=== PATIENT | female | born 1965 | race Caucasian/White ===

== ENCOUNTER 2021-04-04 08:49 | Day surgery (SDC) | payer BC, SELFPAY ==
[2021-04-01 16:52] LABS: BASOPHILS # (AUTO) 0.1 K/uL (0.0-0.2); BASOPHILS % (AUTO) 0.7 % (0.0-2.0); EOSINOPHILS # (AUTO) 0.2 K/uL (0.0-0.4); EOSINOPHILS % (AUTO) 3.4 % (0.0-4.0); HEMATOCRIT 42.1 % (36-48); HEMOGLOBIN 14.1 g/dL (12.0-16.0); LYMPHOCYTES # (AUTO) 2.9 K/uL (1.0-5.5); LYMPHOCYTES % (AUTO) 40.8 % (20.5-51.5); MEAN CORPUSCULAR HEMOGLOBIN 30 pg (27-31); MEAN CORPUSCULAR HGB CONC 34 % (32-36); MEAN CORPUSCULAR VOLUME 88 fL (79.0-98.0); MONOCYTES # (AUTO) 0.5 K/uL (0.0-1.0); MONOCYTES % (AUTO) 6.3 % (1.7-9.3); NEUTROPHILS # (AUTO) 3.5 K/uL (1.8-7.7); NEUTROPHILS % (AUTO) 48.8 % (40.0-70.0); PLATELET COUNT (AUTO) 305 K/uL (130-430); RED BLOOD CELL COUNT(AUTO) 4.77 MIL/uL (4.2-6.2); RED CELL DISTRIBUTION WIDTH 14.4 % (9.0-15.0); WHITE BLOOD COUNT (AUTO) 7.2 K/uL (4.8-10.8)
[2021-04-01 16:59] LABS: ALBUMIN 4.1 g/dL (3.4-4.8); CALCIUM 8.9 mg/dL (8.4-11.0); CREATININE 0.71 mg/dL (0.55-1.30); POTASSIUM 3.6 mmol/L (3.5-5.1); TOTAL BILIRUBIN 0.1 mg/dL (0.0-1.0)
[~2021-04-04] VITALS: Ht 162.6 cm; Wt 71.7 kg
[~2021-04-04 08:49] MED LIST: CEFAZOLIN SOD 1 GM in D5W 50 ML IV ONE
[2021-04-04] MEDS ORDERED: ASCO500C18 PO (12:12)
[2021-04-04] MEDS ORDERED: LR 1,000 ML IV.SOLN IV ONE (12:39)
[2021-04-04] MEDS ORDERED: BUPIVACAINE /PF 0.25% 30 ML VIAL INJ ONE (12:39)
[2021-04-04] MEDS ORDERED: KETOROLAC TROMETHAMINE 30 MG VIAL IVP ONE (12:39)
[2021-04-04] MEDS ORDERED: PROPOFOL 200MG/ 20ML VIAL (DIPRIVAN) IV ONE (12:39)
[2021-04-04] MEDS ORDERED: ISOSULFAN BLUE 5 ML VIAL (LYMPHAZURIN) INJ ONE (12:39)
[2021-04-04] MEDS ORDERED: DEXAMETHASONE SOD PHOSPHATE 4 MG/ML VIAL IVP ONE (12:39)
[2021-04-04] MEDS ORDERED: SEVOFLURANE 15 MIN GAS INH ONE (12:39)
[2021-04-04] MEDS ORDERED: MIDAZOLAM HCL 5 MG/5 ML VIAL IVP ONE (12:39)
[2021-04-04] MEDS ORDERED: ONDANSETRON HCL 4 MG/2 ML VIAL IVP ONE (12:39)
[2021-04-04] MEDS ORDERED: fentaNYL CITRATE 250 MCG/5 ML AMP IV ONE (12:39)
[2021-04-04] MEDS ORDERED: MEPERIDINE HCL/PF 25 MG/ML DISP.SYRIN IVP PRN (13:30)
[2021-04-04] MEDS ORDERED: METOCLOPRAMIDE HCL 10 MG/2 ML VIAL IVP PRN (13:30)
[2021-04-04] MEDS ORDERED: LR 1,000 ML IV SCH (13:30)
[2021-04-04] MEDS ORDERED: hydrALAZINE HCL 20 MG/ML VIAL IVP PRN (13:30)
[2021-04-04] MEDS ORDERED: MIDAZOLAM HCL 2 MG/2 ML VIAL (VERSED) IVP PRN (13:30)
[2021-04-04] MEDS ORDERED: HYDROmorphone 1 MG/ML INJ. CARTRIDGE IVP PRN (13:30)
[2021-04-04] MEDS ORDERED: ACETAMINOPHEN I.V. 1000 MG 100 ML IV ONE (13:43)
[2021-04-04] MEDS ORDERED: MORPHINE 4 MG INJ. 4 MG/ML VIAL IVP PRN (14:45)
[2021-04-04] MEDS ORDERED: HYDROcodone/ACETAMIN 5-325 MG TAB (NORCO/ VICODIN) PO PRN (14:45)
[2021-04-04] MEDS ORDERED: ONDANSETRON HCL 4 MG/2 ML VIAL IVP PRN (14:45)
[2021-04-04] MEDS ORDERED: HYDROmorphone 2 MG/ML VIAL IVP PRN (14:45)
[2021-04-04] MEDS ORDERED: HYDROmorphone 1 MG/ML INJ. CARTRIDGE ONE (15:00)
[2021-04-04] MEDS: HYDROmorphone 1 MG/ML INJ. CARTRIDGE IVP PRN ×2 (15:02→15:07)
[2021-04-04 16:00] VITALS: BP_SYST 115
[2021-04-04] MEDS: D5/0.45 NS 1,000 ML IV SCH (17:32)
[2021-04-04] MEDS: CEFAZOLIN 1 GM IVPB PREMIX 50 ML IV SCH (18:20)
[2021-04-04 22:28] VITALS: BP_SYST 96
[2021-04-05] MEDS: CEFAZOLIN 1 GM IVPB PREMIX 50 ML IV SCH (02:33)
[2021-04-05 05:33] VITALS: BP_SYST 124
[2021-04-05 08:00] VITALS: BP_SYST 111
[2021-04-05] MEDS: D5/0.45 NS 1,000 ML IV SCH (10:45)
[2021-04-05 12:00] VITALS: BP_SYST 108
[2021-04-05 12:59] VITALS: BP_SYST 108
== END 2021-04-05 14:05 | disposition home or self-care (01) ==
LOC: SDS 08:49 → SMU 08:49 → SDS 04-05 14:05
PROVIDERS: ATTEND Surgery
DX: D05.92 Unspecified type of carcinoma in situ of left breast (principal); K21.9 Gastro-esophageal reflux disease without esophagitis; Z20.822 Contact with and (suspected) exposure to COVID-19; Z79.899 Other long term (current) drug therapy
CPT/HCPCS: 19301; 36415 ×2; 38525; 71045; 78195; 80053; 85025; 87081; 87426; 88307; A9541; J0131; J0690 ×2; J1100; J1170; J1885; J2250; J2405; J2704; J3010; J3490; J7060; J7120; Q9968; U0003